=== PATIENT | female | born 1965 | race Caucasian/White ===

== ENCOUNTER 2024-07-18 19:15 | Emergency (ER) | payer MEDICAID ==
[~2024-07-18] VITALS: Ht 165.1 cm; Wt 63.5 kg
[2024-07-18 20:04] LABS: BASOPHILS % (AUTO) 0.4 % (0.0-2.0); EOSINOPHILS % (AUTO) 0.1 % (0.0-7.0); HEMATOCRIT 40.4 % (31.2-41.9); HEMOGLOBIN 13.6 g/dL (10.9-14.3); LYMPHOCYTES # (AUTO) 0.9 K/uL (0.8-4.8); LYMPHOCYTES % (AUTO) 10.3 % (20.5-51.5); MEAN CORPUSCULAR HEMOGLOBIN 32.3 uug (24.7-32.8); MEAN CORPUSCULAR HGB CONC 34 g/dL (32.3-35.6); MEAN CORPUSCULAR VOLUME 95.6 fL (75.5-95.3); MONOCYTES # (AUTO) 0.2 K/uL (0.1-1.30); MONOCYTES % (AUTO) 1.8 % (0.0-11.0); NEUTROPHILS % (AUTO) 87.4 % (38.5-71.5); PLATELET COUNT (AUTO) 231 K/uL (179-408); RED BLOOD CELL COUNT(AUTO) 4.23 MIL/uL (3.63-4.92); RED CELL DISTRIBUTION WIDTH 13.2 % (12.3-17.7); WHITE BLOOD COUNT (AUTO) 9.1 K/uL (3.8-11.8)
[2024-07-18 20:05] LABS: DIFFERENTIAL COMMENT 1
[2024-07-18 20:17] LABS: ALANINE AMINOTRANSFERASE 37 U/L (14-59); ALBUMIN 3.5 g/dL (3.4-5.0); ALKALINE PHOSPHATASE 92 U/L (50-136); ASPARTATE AMINOTRANSFERASE 24 U/L (15-37); BILIRUBIN,DIRECT 0.1 mg/dL (0.0-0.2); BILIRUBIN,TOTAL 0.4 mg/dL (0.2-1.0); CALCIUM 9.3 mg/dL (8.5-10.1); CARBON DIOXIDE 23 mmol/L (21-32); CHLORIDE 101 mmol/L (98-107); CREATININE 1.1 mg/dL (0.6-1.3); GLUCOSE 385 mg/dL (74-106); NT-PRO BNP 105 pg/mL (0-125); POTASSIUM 3.9 mmol/L (3.5-5.1); SODIUM SERUM 138 mmol/L (136-145); TOTAL PROTEIN, SERUM 7.2 g/dL (6.4-8.2); UREA NITROGEN, BLOOD 18 mg/dL (7-18)
[2024-07-18] MEDS ORDERED: ESCI10TA PO (21:13)
[2024-07-18] MEDS ORDERED: LEVO75TA7 PO (21:13)
[2024-07-18] MEDS ORDERED: HYDR5TAB PO (21:13)
[2024-07-18] MEDS ORDERED: HYDR10TA PO (21:13)
[2024-07-18] MEDS ORDERED: AMYL1CAP58 PO (21:13)
[2024-07-18] MEDS ORDERED: AMLO5TAB4 PO (21:13)
[2024-07-18] MEDS ORDERED: TRAZ-257 PO (21:13)
[2024-07-18] MEDS ORDERED: HYDR10SY12 PO (21:13)
[2024-07-18] MEDS ORDERED: KETOROLAC TROMETHAMINE 15 MG INJ ONE (21:18)
[2024-07-18] MEDS ORDERED: diphenhydrAMINE 50 MG/1 ML VIAL ONE (21:18)
[2024-07-18] MEDS: diphenhydrAMINE 50 MG/1 ML VIAL IV ONE (21:26)
[2024-07-18] MEDS: KETOROLAC TROMETHAMINE 15 MG INJ IVP ONE (21:26)
[2024-07-18 22:03] VITALS: BP 129/81; O2SAT 99
== END 2024-07-18 22:04 | disposition home or self-care (01) ==
LOC: ER 19:15
DX: R00.2 Palpitations (principal); R73.9 Hyperglycemia, unspecified; Z79.890 Hormone replacement therapy; Z79.899 Other long term (current) drug therapy; Z88.2 Allergy status to sulfonamides
CPT/HCPCS: 99285; 96374; 71045; 96375; 80076; 80048; 82962 ×2; 83880; 85025; 85379; 85730; 84484 ×2; 36415; 93005; J1885; J1200; A4606; A4663